=== PATIENT | female | born 1955 ===

== ENCOUNTER 2018-05-02 19:00 | Emergency (ER) | payer OTHER ==
[2018-05-02 20:34] VITALS: BP 127/57
[2018-05-02] MEDS ORDERED: Ibuprofen TAB* 600 MG PO ONE (20:48)
--- NOTE | 2018-05-02 20:50 | UC ---
Truncal Trauma HPI - HPI Summary HPI Summary: 62 yo female injured left chest 2 days ago attempting to lay on blanket on ground sneezed today and felt rib pop - History Of Current Complaint Chief Complaint: UCGeneralIllness Stated Complaint: COUGH, RIB PAIN Time Seen by Provider: 05/02/18 20:31 Hx Obtained From: Patient Onset/Duration: Sudden Onset Onset Of Pain: Immediate Severity Initially: Severe Severity Currently: Severe Pain Intensity: 10 Pain Scale Used: 0-10 Numeric Mechanism Of Injury: Other - bending Aggravating Factor(s): Movement, Deep Breathing, Cough Alleviating factor(s): Rest, OTC Medication Associated Signs And Symptoms: Positive: Chest Pain Torso: 1 - tender - Allergies/Home Medications Allergies/Adverse Reactions: Allergies Allergy/AdvReac Type Severity Reaction Status Date / Time No Known Allergies Allergy Verified 05/02/18 20:32 Home Medications: Home Medications Escitalopram Oxalate [Lexapro] 10 mg PO DAILY 05/02/18 [History Confirmed ] Ibuprofen TAB* [Advil TAB*] 600 mg PO Q6H PRN 05/02/18 [History Confirmed ] PMH/Surg Hx/FS Hx/Imm Hx Previously Healthy: Yes - severe osteophorosis - Surgical History Surgical History: Yes Surgery Procedure, Year, and Place: R knee. uterus repair after IUD removal. tubes tied - Social History Alcohol Use: None Substance Use Type: None Smoking Status (MU): Light Every Day Tobacco Smoker Type: Cigarettes Amount Used/How Often: 5 cigs/day Review of Systems Constitutional: Negative Skin: Negative Eyes: Negative ENT: Negative Respiratory: Negative Cardiovascular: Chest Pain Gastrointestinal: Negative Genitourinary: Negative Motor: Negative Neurovascular: Negative Musculoskeletal: Negative Neurological: Negative Psychological: Negative Is Patient Immunocompromised?: No All Other Systems Reviewed And Are Negative: Yes Physical Exam Triage Information Reviewed: Yes Appearance: Well-Appearing, No Pain Distress, Well-Nourished Vital Signs: Initial Vital Signs Temp 97.5 F 05/02/18 20:25 Pulse 86 05/02/18 20:25 Resp 18 05/02/18 20:25 BP 127/57 05/02/18 20:25 Pulse Ox 99 05/02/18 20:25 Vital Signs Reviewed: Yes Eyes: Positive: Conjunctiva Clear ENT: Positive: Hearing grossly normal. Negative: Nasal congestion, Nasal drainage, Trismus, Muffled voice, Hoarse voice Neck: Positive: Supple, Nontender Respiratory: Positive: Lungs clear, Normal breath sounds, No respiratory distress, No accessory muscle use. Negative: Chest non-tender Cardiovascular: Positive: RRR, No Murmur Abdomen Description: Positive: Nontender, No Organomegaly. Negative: CVA Tenderness (R), CVA Tenderness (L) Bowel Sounds: Positive: Present Neurological: Positive: Alert Psychological Exam: Normal Skin Exam: Normal Diagnostics - Radiology No standard instances Xray Interpretation: No Acute Changes - left ribs Radiology Interpretation Completed By: Radiologist Truncal Trauma Course/Dx - Differential Dx/Diagnosis Provider Diagnoses: left rib contusion. ? occult fracture Discharge - Sign-Out/Discharge Documenting (check all that apply): Discharge/Admit/Transfer - Discharge Plan Condition: Stable Disposition: HOME Patient Education Materials: Rib Contusion (ED) Referrals: Laura Richmond MD [Primary Care Provider] - 2 Weeks Additional Instructions: continue ibuprofen - Billing Disposition and Condition Condition: STABLE Disposition: Home
--- NOTE | 2018-05-02 21:29 | RAD ---
INDICATION: Left rib pain COMPARISON: None. TECHNIQUE: 4 views of the left ribs were obtained. FINDINGS: Metallic BB is noted overlying the lateral left lower ribs. No fracture or significant focal osseous abnormality is seen. No pneumothorax is apparent. Limited views demonstrate grossly clear lungs. IMPRESSION: No radiographically apparent displaced rib fracture or pneumothorax. If the patient's symptoms persist, follow-up imaging is recommended.
== END 2018-05-02 21:40 | disposition home or self-care (01) ==
LOC: UCCORT 19:00
DX: S20.212A Contusion of left front wall of thorax, initial encounter (principal); X50.0XXA Overexertion from strenuous movement or load, initial encounter; Y93.89 Activity, other specified; Y92.9 Unspecified place or not applicable; F17.210 Nicotine dependence, cigarettes, uncomplicated
CPT/HCPCS: 99212; A9270-GY; G0463

== ENCOUNTER 2020-01-19 15:58 | Emergency (ER) | payer OTHER ==
[2020-01-19 16:08] VITALS: BP 117/69
--- NOTE | 2020-01-19 16:45 | UC ---
Respiratory Complaint HPI - HPI Summary HPI Summary: Nurse's notes:saw PCP 01/15/20, tested negative for flu, xrays done, negative for pneumonia, continues to have cough, given tessalon and zpack finished today. Patient was also given Robitussin with codeine for cough which she states she's only taken one time. She has not taken anything for fever. - History of Current Complaint Chief Complaint: UCRespiratory Stated Complaint: COUGH, CHILLS, FEVER Time Seen by Provider: 01/19/20 15:59 Hx Obtained From: Patient ?: No Onset/Duration: Gradual Onset, Lasting Days Timing: Constant Severity Initially: Moderate Severity Currently: Moderate Pain Intensity: 10 Character: Cough: Productive - Patient states she now has productive cough of gill colored sputum. Aggravating Factors: Nothing Alleviating Factors: Nothing Associated Signs And Symptoms: Positive: Fever, Chills, URI - Allergies/Home Medications Allergies/Adverse Reactions: Allergies Allergy/AdvReac Type Severity Reaction Status Date / Time No Known Allergies Allergy Verified 01/19/20 16:09 Home Medications: Home Medications Escitalopram Oxalate [Lexapro] 10 mg PO DAILY 05/02/18 [History Confirmed ] Ibuprofen TAB* [Advil TAB*] 600 mg PO Q6H PRN 05/02/18 [History Confirmed ] Azithromycin TAB* [Zithromax TAB (Z-MILDRDE) 250 mg #6 tabs] 250 mg PO DAILY [History Confirmed 01/19/20] Benzonatate CAP* [Tessalon 100 MG CAP*] 100 mg PO TID PRN 01/19/20 [History Confirmed 01/19/20] Cefuroxime 500 MG TAB (NF) [Ceftin 500 MG TAB (NF)] 500 mg PO BID 10 Days #20 tab 01/19/20 [Rx] PMH/Surg Hx/FS Hx/Imm Hx Previously Healthy: Yes - Surgical History Surgical History: Yes Surgery Procedure, Year, and Place: R knee. uterus repair after IUD removal. tubes tied - Family History Known Family History: Positive: None - Social History Lives: With Family Alcohol Use: None Substance Use Type: None Smoking Status (MU): Light Every Day Tobacco Smoker Type: Cigarettes Amount Used/How Often: 5 cigs/day Review of Systems All Other Systems Reviewed And Are Negative: Yes Constitutional: Positive: Fever, Chills Respiratory: Positive: Cough - Productive cough of gill colored sputum. She states the only time she feels short of breath is when she is coughing a lot and then she feels she has to take a deep breath at the end of coughing. She just finished a Z-Mildred today. Musculoskeletal: Positive: Myalgia Is Patient Immunocompromised?: No Physical Exam Triage Information Reviewed: Yes Appearance: Well-Appearing, No Pain Distress, Well-Nourished Vital Signs: Initial Vital Signs Temp 102.4 F 01/19/20 16:04 Pulse 124 01/19/20 16:04 Resp 20 01/19/20 16:04 BP 117/69 01/19/20 16:04 Pulse Ox 96 01/19/20 16:04 Vital Signs Reviewed: Yes Eyes: Positive: Conjunctiva Clear ENT: Positive: Pharynx normal, TMs normal, Uvula midline Neck: Positive: Supple, Nontender, No Lymphadenopathy Respiratory: Positive: Lungs clear, Normal breath sounds, No respiratory distress, No accessory muscle use Cardiovascular: Positive: No Murmur, Pulses Normal, Brisk Capillary Refill, Tachycardia Abdomen Description: Positive: Nontender, No Organomegaly, Soft. Negative: CVA Tenderness (R), CVA Tenderness (L), Distended, Guarding, Hepatomegaly, Splenomegaly Bowel Sounds: Positive: Present Musculoskeletal Exam: Normal Neurological Exam: Normal Psychological Exam: Normal Skin Exam: Normal Respiratory Course/Dx - Course Course Of Treatment: Urinalysis: Positive for leukocytes and blood. After discussion with Dr. Trujillo, the antibiotic will be changed to Ceftin 500 mg by mouth twice a day. The patient is to increase fluids, take and antipyretic as directed. If she has any worsening symptoms in the next 24 hours she is to go to the emergency room. Awake and alert and interacting appropriately and is nontoxic in appearance. She stated to me she had not been eating and drinking a lot and I stressed the importance of eating and increasing fluid intake. She can continue her cough medicine as directed. I advised her even over the next few hours if she feels worse or short of breath she is to go to the emergency room. The patient is in agreement with this plan of action. - Differential Dx/Diagnosis Provider Diagnosis: UTI (urinary tract infection), Bronchitis, Flu-like symptoms Discharge ED - Sign-Out/Discharge Documenting (check all that apply): Patient Departure All imaging exams completed and their final reports reviewed: No Studies - Discharge Plan Condition: Fair Disposition: HOME Prescriptions: Cefuroxime 500 MG TAB (NF) [Ceftin 500 MG TAB (NF)] 500 mg PO BID 10 Days #20 tab Patient Education Materials: Acute Bronchitis (ED), Urinary Tract Infection in Older Adults (ED) Referrals: Ayleen Bell NP [Primary Care Provider] - Additional Instructions: Increase fluids, take Tylenol every 4 hours and may alternate with ibuprofen every 8 hours for fever. You are to go to the emergency room if you have no improvement in symptoms or any worsening symptoms in the next 24 hours. - Billing Disposition and Condition Condition: FAIR Disposition: Home
== END 2020-01-19 16:51 | disposition home or self-care (01) ==
LOC: UCCORT 15:58
DX: N39.0 Urinary tract infection, site not specified (principal); J40 Bronchitis, not specified as acute or chronic; R05 Cough; M79.10 Myalgia, unspecified site; R50.9 Fever, unspecified; F17.210 Nicotine dependence, cigarettes, uncomplicated
CPT/HCPCS: 81003; 87077; 87086; 99212; G0463